=== PATIENT | female | born 1975 | race Caucasian/White ===

== ENCOUNTER 2025-06-18 10:29 | Outpatient (CLI) | payer OTHER, SELFPAY ==
--- NOTE | ~2025-06-18 | CT_ITS ---
EXAM/PROCEDURE: CT sinus wo con HISTORY: Chronic sinusitis COMPARISON: None available. TECHNIQUE: Paranasal sinus CT FINDINGS: Near complete opacification of the left maxillary sinus with small air-fluid level noted. There is mild mucoperiosteal thickening and/or small mucous retention//mucocele in the dependent portion of the right maxillary sinus which is otherwise clear. The left ethmoid air cells are also moderately opacified with congestion and/or at least partial blockage of the left ostiomeatal complex. The right-sided ethmoidal air cells are well aerated and the ostiomeatal complex on the right side is patent. Both frontal sinuses and sphenoid sinuses are fully aerated. Middle ear cavities and mastoid air cells are also fully aerated. Leilani bullosa noted in the right middle turbinate. Nasal septum is midline with no gross deviation. 9 x 7 mm radiolucent defect in the right occipital calvarium image 174 series 2 with no associated soft tissue lesion or aggressive bony features noted. 1.3 x 0.7 cm well-corticated protuberant bony lesion arising from the outer table of the left occipital bone on image 165 series 601. IMPRESSION: 1. Extensive opacification of the left maxillary sinus and left ethmoid air cells with at least partial occlusion of the left ostium and a complex; air- fluid level in the left maxillary sinus could represent acute sinusitis. Milder disease in the right maxillary sinus; remaining sinuses are fully aerated. 2. Calvarial defects/lesions as above have benign features. Query if patient has had a misha hole on the right occipital side; this could represent a nonossified fibroma, again with benign features. 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 Reviewed, dictated and finalized at location A. SEALING MACHINE FEEDER IMPRESSION: 1. Extensive opacification of the left maxillary sinus and left ethmoid air dexter ls with at least partial occlusion of the left ostium and a complex; air-fluid level in the left maxillary sinus could represent acute sinusitis. Milder disea se in the right maxillary sinus; remaining sinuses are fully aerated. 2. Calvarial defects/lesions as above have benign features. Query if patient oakes s had a misha hole on the right occipital side; this could represent a nonossifi ed fibroma, again with benign features. Benign-appearing osteoma in the left oc cipital bone.
== END 2025-06-18 10:30 | disposition home or self-care (01) ==
LOC: MICIMG 10:30
PROVIDERS: PCP Family Medicine; Visit Provider Otolaryngology
DX: J32.9 Chronic sinusitis, unspecified (principal)
CPT/HCPCS: 70486

== ENCOUNTER 2025-07-30 05:52 | Day surgery (SDC) | payer OTHER, SELFPAY ==
[2025-07-21 09:03] VITALS: BMI 38.5
[2025-07-30 06:27] VITALS: BP 142/96; PULSE 102; RESP 20; TEMP 37.1; O2SAT 97
[2025-07-30] MEDS: LACTATED RINGERS 1,000 ML 30 ML IV CONT (07:01)
[2025-07-30] MEDS: ACETAMINOPHEN 500 MG TABLET 1000 MG PO (07:25)
--- NOTE | 2025-07-30 07:28 | PM.HPGS ---
History of Present Illness History of Present Illness Consent: Risks, benefits, and alternatives have been discussed and questions answered. Patient agrees to proceed with procedure. Chief complaint: Chronic Sinusitis Narrative: Jerri Fuentes is a 50 year old female w/ a Hx of chronic sinusitis that has been refractory to medical management. Sinus surgery was offered to the patient and she presents for this today. Review of Systems Review of Systems: All systems reviewed & are unremarkable except as noted in HPI and below PMFSH Past Medical History Medical History (Updated 07/04/25 @ 14:06 by Elias Hernandez MD) Chronic sinusitis Broken ankle both 07/14/2022 Lump in female breast left 2021 delivery delivered 08/16/2005, 08/04/2006 Right rotator cuff tear 05/14/2004 Surgical History Surgical History History of hysterectomy 2021 History of adenoidectomy 2018 Social History Social History Smoking status: Unknown if ever smoked Second hand tobacco smoke exposure: Yes Substance use type: does not use Living arrangements: with family Spiritual care concerns: No Meds Home Medications and Allergies Home Medications ?Medication ?Instructions ?Recorded ?Confirmed ?Type albuterol sulfate 90 mcg/actuation 2 puff inhalation Q4-6H PRN 06/03/25 07/30/25 History aerosol inhaler shortness of breath or wheezing amitriptyline 25 mg tablet 25 mg PO DAILY 06/03/25 07/30/25 History fluticasone propionate 50 2 spray intranasal DAILY PRN 06/03/25 07/30/25 History mcg/actuation nasal allergy symptoms spray,suspension lisinopril 20 mg tablet 20 mg PO DAILY 06/03/25 07/30/25 History sumatriptan succinate 25 mg tablet 25 mg PO DAILY PRN migraine 06/03/25 07/30/25 History headache ibuprofen 200 mg-phenylephrine HCl 1 tablet PO Q4-6H PRN nasal 07/21/25 07/30/25 History 10 mg tablet (Advil Sinus congestion Congestion-Pain) Allergies Allergy/AdvReac Type Severity Reaction Status Date / Time prednisone AdvReac Severe Rash Verified 07/30/25 06:24 latex AdvReac Mild Itching Verified 07/30/25 06:24 Vital Signs Vital Signs - 24 hr 07/30/25 06:27 Temperature 37.1 C Pulse Rate 102 H Respiratory Rate 20 Blood Pressure 142/96 H Pulse Oximetry 97 Oxygen Delivery Room Air Exam Narrative: General: Well developed, well nourished. No apparent distress. Voice strong. Head: Normocephalic, atraumatic. Eyes: Sclerae and conjunctivae clear. Pupils equal and round. Full extraocular motility. Ears: Normal pinnae. Nose: Nasal dorsum is straight. No drainage or crusting at nares. Oral Cavity / Oropharynx: Moist mucous membranes. Neck: Supple, nontender. No palpable lymphadenopathy, neck mass, or thyromegaly. Lungs: Respirations unlabored. Cardiovascular: Extremities warm and well perfused. Neurologic: Alert, oriented. Moves all extremities. Facial sensation intact to light touch. Face symmetric. Palate elevates symmetrically. Tongue midline. Assessment and Plan Assessment and plan (1) Chronic sinusitis: Qualifiers: Sinusitis location: unspecified location Qualified Code(s): J32.9 - Chronic sinusitis, unspecified Code(s): J32.9 - Chronic sinusitis, unspecified Status: Acute Plan OR today for endoscopic sinus surgery. The risks, benefits, and alternatives to surgery were discussed. The risks of pain, bleeding, infection, scarring, no improvement in symptoms, worsening symptoms, recurrent symptoms, septal hematoma, septal perforation, numbness of upper teeth and palate, saddle nose deformity, empty nose syndrome, loss of taste and/or smell, injury to the nasolacrimal duct, injury to the orbit, vision loss, double vision, injury to the skull base, CSF leak, meningitis, stroke, and were all reviewed. The patient expressed understanding and wishes to proceed with surgery.
--- NOTE | 2025-07-30 07:30 | WPDHPUPDATE1 ---
History and Physical Update Update Date/Time: 07/30/25 07:30 History and Physical has been reviewed, including an updated exam of the patient. There are NO changes in the patient's condition. Risks, benefits, and alternatives have been discussed and questions answered. Patient agrees to proceed with procedure.
[2025-07-30 08:19] VITALS: BP 138/80; PULSE 96; RESP 14; O2SAT 100
--- NOTE | 2025-07-30 08:28 | SUR.OPER ---
ASSISTANT CENTER MANAGER attempted intubation x3 using glide scope. Unable to intubate. Procedure aborted. Reversal agent given. Patient taken to PACU to recover.
[2025-07-30 08:30] VITALS: BP 126/72; PULSE 92; RESP 16; O2SAT 100
[2025-07-30 08:40] VITALS: BP 128/77; PULSE 92; RESP 16; O2SAT 99
--- NOTE | 2025-07-30 08:50 | WPDANESEPPF ---
Anes - Initial Pre Proc Eval Procedure: Operation Date: 07/30/25 07:30 Proposed Procedures p Left Maxillary Antrostomy with Tissue Removal and Ethmoidectomy - Elias Hernandez MD Date/Time: 07/30/25719 Surgeon: Elias Hernandez MD Pre Op Diagnosis: Chronic Sinusitis Patient Data Age: 50 Gender: F Height: 1.6 m Weight: 96.8 kg Last Vital Signs Temp 37.1 C 07/30/25 06:27 Pulse 92 07/30/25 08:40 Resp 16 07/30/25 08:40 BP 128/77 07/30/25 08:40 Pulse Ox 99 07/30/25 08:40 O2 Del Method Room Air 07/30/25 08:40 O2 Flow Rate 6 07/30/25 08:19 Allergies Allergy/AdvReac Type Severity Reaction Status Date / Time prednisone AdvReac Severe Rash Verified 07/30/25 06:24 latex AdvReac Mild Itching Verified 07/30/25 06:24 Home Medications ?Medication ?Instructions ?Recorded ?Confirmed ?Type albuterol sulfate 90 mcg/actuation 2 puff inhalation Q4-6H PRN 06/03/25 07/30/25 History aerosol inhaler shortness of breath or wheezing amitriptyline 25 mg tablet 25 mg PO DAILY 06/03/25 07/30/25 History fluticasone propionate 50 2 spray intranasal DAILY PRN 06/03/25 07/30/25 History mcg/actuation nasal allergy symptoms spray,suspension lisinopril 20 mg tablet 20 mg PO DAILY 06/03/25 07/30/25 History sumatriptan succinate 25 mg tablet 25 mg PO DAILY PRN migraine 06/03/25 07/30/25 History headache ibuprofen 200 mg-phenylephrine HCl 1 tablet PO Q4-6H PRN nasal 07/21/25 07/30/25 History 10 mg tablet (Advil Sinus congestion Congestion-Pain) Patient hx anesthesia problems: post op nausea/vomiting Family hx anesthesia problems: none Results Review: All pre-operative results and documents have been reviewed as part of the pre-operative evaluation. [facility] Past Medical History Medical History (Updated 07/04/25 @ 14:06 by Elias Hernandez MD) Chronic sinusitis Broken ankle both 07/14/2022 Lump in female breast left 2022 delivery delivered 08/16/2005, 08/04/2006 Right rotator cuff tear 05/14/2004 Surgical History Surgical History History of hysterectomy 2021 History of adenoidectomy 2018 Social History Social History Smoking status: Unknown if ever smoked Second hand tobacco smoke exposure: Yes Substance use type: does not use Living arrangements: with family Spiritual care concerns: No Anes - Eval Final PreProcedure Day of Procedure 07/30/25 08:50 Heart: regular rate and rhythm Lungs: clear to auscultation Airway: Mallampati scale class II Neurological: alert and oriented Last oral intake: >/= 8 hours ASA classification: II Results Review: All pre-operative results and documents have been reviewed as part of the pre-operative evaluation. Informed Consent: The patient's anesthetic plan and its attendant risks and benefits were discussed with the patient/family/POA. Questions were solicited and answers provided to the satisfaction of the patient/family/POA.
--- NOTE | 2025-07-30 08:52 | P.PNAN_ITS ---
Anes - Prog Note Post-Op Date/Time: 07/30/25 08:52 Cardiovascular status: normal Respiratory status: normal Airway patency: baseline Mental status: baseline Post-Op hydration status: normal Vital Signs: Last Vital Signs Temp 37.1 07/30/25 06:27 Pulse 92 07/30/25 08:40 Resp 16 07/30/25 08:40 BP 128/77 07/30/25 08:40 Pulse Ox 99 07/30/25 08:40 O2 Del Method Room Air 07/30/25 08:40 O2 Flow Rate 6 07/30/25 08:19 Pain Score (VAS): 0 I/O: Intake & Output 07/29/25 07/30/25 07/30/25 23:59 07:59 15:59 Intake Total 500 Balance 0 Patient Feedback: Patient satisfied with anesthetic care. Other Findings: Difficult airway. X3 attempt with glidescope. grade 2 view. airway became edematous with each attempt as well as bloody secretions. Dr. Goldman and SHARED SERVICES AND OUTSOURCING MANAGER decide to wake patient up for safety reasons.
[2025-07-30 09:10] VITALS: BP 124/77; PULSE 89; RESP 20; O2SAT 100
== END 2025-07-30 09:30 | disposition home or self-care (01) ==
PROVIDERS: PCP Family Medicine; Visit Provider Otolaryngology
PROC: (CPT 31267; principal; 2025-07-30 07:30)
DX: J32.9 Chronic sinusitis, unspecified (principal); Z53.8 Procedure and treatment not carried out for other reasons
CPT/HCPCS: 31267